=== PATIENT | male | born 1935 | race Caucasian/White ===

== ENCOUNTER 2024-10-09 21:00 | Outpatient (CLI) | payer MEDICARE, SELFPAY | END 2024-10-09 21:01 | disposition home or self-care (01) | LOC: AMB 10-10 02:22 | PROVIDERS: Visit Provider Family Medicine | DX: R53.83 Other fatigue (principal); J10.1 Influenza due to other identified influenza virus with other respiratory manifestations; R09.02 Hypoxemia | CPT/HCPCS: A0425; A0434 ==